=== PATIENT | female | born 1950 | race Caucasian/White ===

== ENCOUNTER 2023-01-19 15:48 | Emergency (ER) | payer MEDICARE ==
[2023-01-19 16:21] VITALS: TEMP 98.8
[2023-01-19] MEDS ORDERED: Sodium Chloride 0.9% 1000 ML 1,000 ML IV SCH (16:30)
[2023-01-19 16:46] LABS: Absolute Neutrophil Ct (ANC) 3.18 x10^3/uL (1.4-6.9); BASOPHIL % 0.6 % (0.0-0.4); Basophil (Absolute #) 0.03 x10^3/uL (0-0.4); Eosinophil % 3.7 % (0.00-5.0); Eosinophil (Absolute #) 0.19 x10^3/uL (0-0.5); Hematocrit 32.2 % (35-47); Hemoglobin 10.4 g/dL (12.0-16.0); IMMATURE GRAN # 0.02 x10^3u/L (0.00-0.03); IMMATURE GRAN % 0.4 % (0.00-0.4); Lymphocyte (Absolute #) 1.27 x10^3/uL (1.0-4.6); Lymphocytes % 24.8 % (24.0-44.0); Mean Cell Volume 94.4 fL (78-100); Mean Corpuscular Hemoglobin 30.5 pg (26-32); Mean Corpuscular Hgb Concent. 32.3 g/dL (32-36); Mean Platelet Volume 8.5 fL (7.5-11.0); Monocyte (Absolute #) 0.43 x10^3/uL (0.0-1.3); Monocytes % 8.4 % (0.0-12.0); Neutrophil % 62.1 % (36.0-66.0); Platelet Count 246 x10^3/uL (150-450); Red Blood Count 3.41 x10^6/uL (4.1-5.4); White Blood Count 5.1 x10^3/uL (4.0-10.5)
[2023-01-19 16:50] LABS: Appearance Clear (Clear); Bacteria None Seen /HPF (None Seen); Bilirubin Negative (Negative); Blood Negative (Negative); Epithelial Cells Few /HPF (None Seen); Glucose, Urine Negative (Negative); Hyaline Casts NONE SEEN /LPF (0-2); Ketones Trace (Negative); Leukocyte Esterase Trace (Negative); Nitrite Negative (Negative); Protein,Urine Dip Trace (Negative); Specific Gravity 1.025 (1.005-1.030)
[2023-01-19 16:53] LABS: ADD URINE CULTURE? NO (NO)
--- NOTE | 2023-01-19 16:55 | XRAY ---
Indication: Confusion. Comparison: None Portable chest demonstrates normal heart and lungs with a few incidental calcified granulomas. Bony thorax intact with osteopenia and mild degenerative changes. Impression: Nonacute chest with chronic features.
--- NOTE | 2023-01-19 16:57 | XRAY ---
Indication: Pain. Comparison: None 3 nonweightbearing views right foot demonstrates osteopenia, mild 1st MTP degenerative changes, tiny posterior heel spur, and tiny cuboid accessory ossicle. No other bony, articular, or soft tissue abnormalities.
[2023-01-19 17:00] LABS: ALKALINE PHOSPHATASE 147 U/L (38-126); ANION GAP 10.8 MEQ/L (5-15); BLOOD UREA NITROGEN 17 mg/dL (7-17); CHLORIDE 97 mmol/L (98-107); Calcium 8.7 mg/dL (8.4-10.2); Carbon Dioxide 28 mmol/L (22-30); Creatinine 1 0.76 mg/dL (0.52-1.04); EST GLOMERULAR FILTRATION RATE > 60.0 ML/MIN; Glucose 104 mg/dL (74-106); Potassium 3.7 mmol/L (3.5-5.1); SGOT/AST 23 U/L (14-36); SGPT/ALT 14 U/L (0-35); SODIUM 132 mmol/L (137-145)
[2023-01-19 17:08] VITALS: BP 150/86; PULSE 84; RESP 20; O2SAT 99
--- NOTE | 2023-01-19 17:53 | ERPHSYRPT ---
- History of Present Illness Time Seen by Provider: 01/19/23 15:52 Source: patient, family, EMS, jail records Patient Subjective Stated Complaint: Wellness exam Triage Nursing Assessment: Patient brought into ED per EMS and transferred to bed with assist of 2. Patient A+O X 3. Patient's skin pink, warm and dry. Patient currently resides at [facility] currently while receiving therapy from a left hip surgery 5 weeks ago. EMS stated they were told to take patient to [facility] for a psyche eval. Patient answered questions appropriately and denied suicide or homicidal ideation and requested to come to [facility] ER for eval. Patient complains of right foot pain 4/10 from recent fall. Right foot noted to have purple bruising noted. Physician History: 73-year-old female with history of dementia with intermittent episodes of c onfusion, hip fracture with ORIF 5 weeks ago currently getting rehab at [facility] is sent in ER for agitated behavior and possible psych evaluation. As per EMS patient is answering questions appropriately and denies any suicidal or homicidal ideations. Patient reports severe "jail people are rude and they pulled sheets underneath her forcefully causing pain in her hip and she did not want them to do that and had some arguments". Patient does report recent fall with injury to right foot with bruising and mild to moderate dull aching pain at times. She denies any chest pain palpitations or shortness of breath. No obvious difficulty breathing noticed. Patient is not in any distress, not agitated/aggressive. Patient did have a recent UTI for which she got antibiotics. skilled nursing was concerned for worsening UTI. Patient was initially planned to send to [facility] but patient refused to go there and is brought in here. She has bilateral good breath sounds, abdominal exam is soft nontender with good bowel sounds in all 4 quadrants. Moving all 4 extremities. Has a bruise on the right foot. I have obtain baseline labs with showed normal white count, fairly unremarkable chemistries and no UTI. We have spoken with patient family which did confirm patient having some dementia and confusion at times. Patient is calm and denies suicidal or homicidal ideations. I do not think patient needs emergent psych evaluation but we have called behavioral health and provider will see her in the jail in the next couple of days. I do not think patient needs to be admitted or needs any other work-up and is stable for discharge back to jail We have spoken with the jail/family and they are okay with taking patient back. Allergies/Adverse Reactions: cefaclor [From Ceclor] Allergy (Verified 01/19/23 15:58) diphenhydramine [From Benadryl] Allergy (Verified 01/19/23 15:58) erythromycin base Allergy (Verified 01/19/23 15:59) guaifenesin [From Mucinex] Allergy (Verified 01/19/23 15:59) hydromorphone [From Dilaudid] Allergy (Verified 01/19/23 15:59) Sulfa (Sulfonamide Antibiotics) Allergy (Verified 01/19/23 15:58) Home Medications: Unobtainable 01/19/23 [History] Hx Tetanus, Diphtheria Vaccination/Date Given: No Hx Influenza Vaccination/Date Given: No Hx Pneumococcal Vaccination/Date Given: Yes Immunizations Up to Date: Yes Travel Risk - International Travel Have you traveled outside of the country in past 3 weeks: No - Coronavirus Screening Are you exhibiting any of the following symptoms?: No Close contact with a COVID-19 positive Pt in past 14-21 Days: No - Vaccine Status Have you recieved a Covid-19 vaccination: Yes Tray Checker: Unknown - Vaccination Dates Dates if Unknown: na - Review of Systems Constitutional: No Symptoms Eyes: No Symptoms Ears, Nose, & Throat: No Symptoms Respiratory: No Symptoms Cardiac: No Symptoms Abdominal/Gastrointestinal: No Symptoms Genitourinary Symptoms: No Symptoms Musculoskeletal: Arthralgias, Fall, Joint Pain Skin: No Symptoms Neurological: No Symptoms Psychological: Anxiety Endocrine: No Symptoms Hematologic/Lymphatic: No Symptoms - Past Medical History Pertinent Past Medical History: Yes Neurological History: No Pertinent History ENT History: No Pertinent History Cardiac History: High Cholesterol Endocrine Medical History: Hypothyroidism Musculoskeletal History: No Pertinent History GI Medical History: GERD History: No Pertinent History Psycho-Social History: No Pertinent History Female Reproductive Disorders: No Pertinent History - Past Surgical History Past Surgical History: Yes Neuro Surgical History: No Pertinent History Cardiac: No Pertinent History Respiratory: No Pertinent History Gastrointestinal: No Pertinent History Genitourinary: No Pertinent History Musculoskeletal: Orthopedic Surgery Female Surgical History: No Pertinent History Other Surgical History: Right hip surgery - Social History Smoking Status: Never smoker Exposure to second hand smoke: No Drug Use: none Patient Lives Alone: No - Nursing Vital Signs Nursing Vital Signs: Initial Vital Signs Temperature 98.8 F 01/19/23 16:00 Pulse Rate 74 01/19/23 16:00 Respiratory Rate 18 01/19/23 16:00 Blood Pressure 158/99 01/19/23 16:00 O2 Sat by Pulse Oximetry 100 01/19/23 16:00 Pain Scale Pain Intensity 2 - Physical Exam General Appearance: no apparent distress, alert Eye Exam: PERRL/EOMI Ears, Nose, Throat Exam: normal ENT inspection, TMs normal, pharynx normal, moist mucous membranes Neck Exam: normal inspection, non-tender, supple, full range of motion Respiratory Exam: normal breath sounds, lungs clear Cardiovascular Exam: regular rate/rhythm, normal heart sounds Gastrointestinal/Abdomen Exam: soft, normal bowel sounds, No tenderness Back Exam: normal inspection Extremity Exam: normal inspection, pelvis stable Neurologic Exam: alert, oriented x 3, cooperative, overcoiler II-XII nml as tested, nml cerebellar function, sensation nml, No normal mood/affect, No motor deficits Skin Exam: normal color SpO2 Interpretation: normal SpO2: 99 O2 Delivery: Room Air Ordered Tests: Active Orders 24 hr Category Date Time Status CHEST 1 VIEW (PORTABLE) Stat Exams 01/19/23 16:21 Completed FOOT (MINIMUM 3 VIEWS) Stat Exams 01/19/23 16:23 Completed BLOOD CULTURE Stat Lab 01/19/23 16:32 Received CBC W DIFF Stat Lab 01/19/23 16:44 Completed CMP Stat Lab 01/19/23 16:44 Completed Lactic Acid Stat Lab 01/19/23 16:30 Completed TSH [TSH, 3RD Generation] Stat Lab 01/19/23 16:44 Completed UA W/RFX UR CULTURE Stat Lab 01/19/23 16:32 Completed Medication Summary Generic Name Dose Route Start Last Admin Trade Name Freq PRN Reason Stop Dose Admin Sodium Chloride 1,000 mls @ 100 mls/hr 01/19/23 16:30 Sodium Chloride 0.9% 1000 Ml IV 02/18/23 16:29 .Q10H [facility] Lab/Rad Data: Laboratory Result Diagrams 01/19/23 16:44 01/19/23 16:44 Laboratory Results 01/19/23 01/19/23 01/19/23 Range/Units 16:44 16:44 16:44 WBC 5.1 (4.0-10.5) x10^3/uL RBC 3.41 L (4.1-5.4) x10^6/uL Hgb 10.4 L (12.0-16.0) g/dL Hct 32.2 L (35-47) % MCV 94.4 (78-100) fL MCH 30.5 (26-32) pg MCHC 32.3 (32-36) g/dL RDW 13.0 (11.5-14.0) % Plt Count 246 (150-450) x10^3/uL MPV 8.5 (7.5-11.0) fL Gran % 62.1 (36.0-66.0) % Immature Gran % (Auto) 0.4 (0.00-0.4) % Nucleat RBC Rel Count 0.0 (0.00-0.1) % Eos # (Auto) 0.19 (0-0.5) x10^3/uL Immature Gran # (Auto) 0.02 (0.00-0.03) x10^3u/L Absolute Lymphs (auto) 1.27 (1.0-4.6) x10^3/uL Absolute Monos (auto) 0.43 (0.0-1.3) x10^3/uL Absolute Nucleated RBC 0.00 (0.00-0.01) x10^3u/L Lymphocytes % 24.8 (24.0-44.0) % Monocytes % 8.4 (0.0-12.0) % Eosinophils % 3.7 (0.00-5.0) % Basophils % 0.6 (0.0-0.4) % Absolute Granulocytes 3.18 (1.4-6.9) x10^3/uL Basophils # 0.03 (0-0.4) x10^3/uL Sodium 132 L (137-145) mmol/L Potassium 3.7 (3.5-5.1) mmol/L Chloride 97 L (98-107) mmol/L Carbon Dioxide 28 (22-30) mmol/L Anion Gap 10.8 (5-15) MEQ/L BUN 17 (7-17) mg/dL Creatinine 0.76 (0.52-1.04) mg/dL Estimated GFR > 60.0 ML/MIN Glucose 104 (74-106) mg/dL Lactic Acid (0.4-2.0) Calcium 8.7 (8.4-10.2) mg/dL Total Bilirubin 0.30 (0.2-1.3) mg/dL AST 23 (14-36) U/L ALT 14 (0-35) U/L Alkaline Phosphatase 147 H (38-126) U/L Serum Total Protein 7.0 (6.3-8.2) g/dL Albumin 4.0 (3.5-5.0) g/dL TSH 3rd Generation 0.383 L (0.47-4.68) mIU/L Urine Color (Yellow) Urine Appearance (Clear) Urine pH (4.6-8.0) Ur Specific Epes (1.005-1.030) Urine Protein (Negative) Urine Glucose (UA) (Negative) mg/dL Urine Ketones (Negative) Urine Blood (Negative) Urine Nitrite (Negative) Urine Bilirubin (Negative) Urine Urobilinogen (0.2) mg/dL Ur Leukocyte Esterase (Negative) U Hyaline Cast (Auto) (0-2) /LPF Urine Microscopic RBC (0-5) /HPF Urine Microscopic WBC (0-5) /HPF Ur Epithelial Cells (None Seen) /HPF Urine Bacteria (None Seen) /HPF Urine Culture Reflexed (NO) 01/19/23 01/19/23 Range/Units 16:32 16:30 WBC (4.0-10.5) x10^3/uL RBC (4.1-5.4) x10^6/uL Hgb (12.0-16.0) g/dL Hct (35-47) % MCV (78-100) fL MCH (26-32) pg MCHC (32-36) g/dL RDW (11.5-14.0) % Plt Count (150-450) x10^3/uL MPV (7.5-11.0) fL Gran % (36.0-66.0) % Immature Gran % (Auto) (0.00-0.4) % Nucleat RBC Rel Count (0.00-0.1) % Eos # (Auto) (0-0.5) x10^3/uL Immature Gran # (Auto) (0.00-0.03) x10^3u/L Absolute Lymphs (auto) (1.0-4.6) x10^3/uL Absolute Monos (auto) (0.0-1.3) x10^3/uL Absolute Nucleated RBC (0.00-0.01) x10^3u/L Lymphocytes % (24.0-44.0) % Monocytes % (0.0-12.0) % Eosinophils % (0.00-5.0) % Basophils % (0.0-0.4) % Absolute Granulocytes (1.4-6.9) x10^3/uL Basophils # (0-0.4) x10^3/uL Sodium (137-145) mmol/L Potassium (3.5-5.1) mmol/L Chloride (98-107) mmol/L Carbon Dioxide (22-30) mmol/L Anion Gap (5-15) MEQ/L BUN (7-17) mg/dL Creatinine (0.52-1.04) mg/dL Estimated GFR ML/MIN Glucose (74-106) mg/dL Lactic Acid 0.5 (0.4-2.0) Calcium (8.4-10.2) mg/dL Total Bilirubin (0.2-1.3) mg/dL AST (14-36) U/L ALT (0-35) U/L Alkaline Phosphatase (38-126) U/L Serum Total Protein (6.3-8.2) g/dL Albumin (3.5-5.0) g/dL TSH 3rd Generation (0.47-4.68) mIU/L Urine Color Yellow (Yellow) Urine Appearance Clear (Clear) Urine pH 7.0 (4.6-8.0) Ur Specific Epes 1.025 (1.005-1.030) Urine Protein Trace A (Negative) Urine Glucose (UA) Negative (Negative) mg/dL Urine Ketones Trace A (Negative) Urine Blood Negative (Negative) Urine Nitrite Negative (Negative) Urine Bilirubin Negative (Negative) Urine Urobilinogen 1.0 A (0.2) mg/dL Ur Leukocyte Esterase Trace A (Negative) U Hyaline Cast (Auto) NONE SEEN (0-2) /LPF Urine Microscopic RBC 3-5 (0-5) /HPF Urine Microscopic WBC 3-5 (0-5) /HPF Ur Epithelial Cells Few (None Seen) /HPF Urine Bacteria None Seen (None Seen) /HPF Urine Culture Reflexed NO (NO) - Progress Progress: unchanged, re-examined Progress Note: 01/19/23 17:54 73-year-old female with history of dementia with intermittent episodes of confusion, hip fracture with ORIF 5 weeks ago currently getting rehab at [facility] is sent in ER for agitated behavior and possible psych evaluation. As per EMS patient is answering questions appropriately and denies any suicidal or homicidal ideations. Patient reports severe "jail people are rude and they pulled sheets underneath her forcefully causing pain in her hip and she did not want them to do that and had some arguments". Patient does report recent fall with injury to right foot with bruising and mild to moderate dull aching pain at times. She denies any chest pain palpitations or shortness of breath. No obvious difficulty breathing noticed. Patient is not in any distress, not agitated/aggressive. Patient did have a recent UTI for which she got antibiotics. skilled nursing was concerned for worsening UTI. Patient was initially planned to send to [facility] but patient refused to go there and is brought in here. She has bilateral good breath sounds, abdominal exam is soft nontender with good bowel sounds in all 4 quadrants. Moving all 4 extremities. Has a bruise on the right foot. I have obtain baseline labs with showed normal white count, fairly unremarkable chemistries and no UTI. Chest x-ray negative for any acute cardiopulmonary findings. We have spoken with patient family which did confirm patient having some dementia and confusion at times. Patient is calm and denies suicidal or homicidal ideations. I do not think patient needs emergent psych evaluation but we have called behavioral health and provider will see her in the jail in the next couple of days. I do not think patient needs to be admitted or needs any other work-up and is stable for discharge back to jail We have spoken with the jail/family and they are okay with taking patient back. 01/19/23 17:54 Counseled pt/family regarding: lab results, diagnosis, need for follow-up, rad results Medical Desision Making - Independent Historian Additional History obtained from: Family - Diagnostic Testing Diagnostic test were ordered, analyzed, and reviewed by me: Yes Radiological Interpretation: Reviewed by me - Departure Departure Disposition: Home Clinical Impression: Dementia, Encounter for wellness examination in adult Condition: Stable Critical Care Time: No Referrals: DOCTOR,NO FAMILY [Primary Care Provider] - Follow up/PCP as directed Instructions: Dementia (including Alzheimer disease) Additional Instructions: Follow-up with primary care and behavioral health for reevaluation in the next 1 to 2 days. Return to ER for worsening of behavior or if having suicidal/homicidal ideation/fever chills etc.
== END 2023-01-19 18:47 | disposition home or self-care (01) ==
LOC: ED 15:48
DX: Z03.89 Encounter for observation for other suspected diseases and conditions ruled out (principal); F03.90 Unspecified dementia, unspecified severity, without behavioral disturbance, psychotic disturbance, mood disturbance, and anxiety; M79.671 Pain in right foot; E78.5 Hyperlipidemia, unspecified
CPT/HCPCS: 36415; 71045; 73630; 80053; 81001; 83605; 84443; 85025; 87040; 99283